=== PATIENT | female | born 1975 | race American Indian/Alaskan Native ===

== ENCOUNTER 2021-08-30 05:23 | Emergency (ER) | payer OTHER ==
[~2021-08-30] VITALS: Ht 157.5 cm; Wt 71.2 kg
[~2021-08-30 05:23] MED LIST: IBUPROFEN800 MG PO; NORCO 5-325 TA1 EACH PO; VICODIN HP 10-1 EAC1 PO
--- OUTSIDE RECORDS SUMMARY | 2021-08-30 05:26 | XMS ---
PreManage Notification: JAMIE RENEE Security Machine Assistant Events No recent Security Events currently on file [facility] There are no care providers on record at this time. Charles has no Care Guidelines for this patient. Luis Angel VISIT COUNT (12 MO.) 1 JOSELYN Aguilar TOTAL 1 NOTE: Visits indicate total known visits. ED/C VISIT TRACKING (12 MO.) 08/30/2021 05:23 JOSELYN Hou [place] TYPE: Emergency COMPLAINT: - DIZZINESS, WEAKNESS INPATIENT VISIT TRACKING (12 MO.) No inpatient visits to display in this time frame [id number]
[2021-08-30] MEDS ORDERED: CENTANY30 GM TOP (05:36)
[2021-08-30] MEDS ORDERED: ULTRAM50 MG PO (05:37)
[2021-08-30] MEDS ORDERED: BACTRIM DS TAB1 EACH PO (05:37)
[2021-08-30] MEDS ORDERED: KLONOPIN0.5 MG PO (05:38)
[2021-08-30] MEDS ORDERED: CYCLOBENZAPRINE10 MG PO (05:39)
[2021-08-30] MEDS ORDERED: ONDANSETRON ODT8 MG PO (06:46)
[2021-08-30] MEDS ORDERED: K-TAB ER20 MEQ PO (06:46)
== END 2021-08-30 07:30 | disposition home or self-care (01) ==
LOC: ED 05:23
DX: L03.811 Cellulitis of head [any part, except face] (principal); L03.032 Cellulitis of left toe; B95.62 Methicillin resistant Staphylococcus aureus infection as the cause of diseases classified elsewhere; E87.6 Hypokalemia; F17.200 Nicotine dependence, unspecified, uncomplicated; Z79.899 Other long term (current) drug therapy
CPT/HCPCS: 36415; 80048; 81001; 85025; 96374; 99283-25; C9803; J2405; J7030; U0003

== ENCOUNTER → 2021-11-20 | Emergency (ER) | payer OTHER ==
[~2021-11-20] VITALS: Ht 157.5 cm; Wt 66.7 kg
[~2021-11-20] MED LIST changes: +BACTRIM DS TAB1 EACH PO; +CENTANY30 GM TOP; +CLONIDINE HCL0.1 MG PO; +CYCLOBENZAPRINE10 MG PO; +K-TAB ER20 MEQ PO; +KLONOPIN0.5 MG PO; +MACROBID 100 M100 MG PO; +MIRALAX17 GM PO; +NEURONTIN300 MG PO; +ONDANSETRON ODT8 MG PO; +ULTRAM50 MG PO
--- OUTSIDE RECORDS SUMMARY | 2021-11-20 10:50 | XMS ---
PreManage Notification: JAMIE RENEE Security Die Repairer Forging Events No recent Security Events currently on file CRITERIA MET - [facility] [place] - 2 Visits in 30 Days - [facility] CARE PROVIDERS There are no care providers on record at this time. Charles has no Care Guidelines for this patient. Luis Angel VISIT COUNT (12 MO.) [address] [facility] [address] [facility] TOTAL 3 NOTE: Visits indicate total known visits. ED/C VISIT TRACKING (12 MO.) [facility] COMPLAINT: - WEAKNESS 11/17/2021 20:45 JOSELYN Montelongoony Patrick [facility] [place] TYPE: Emergency COMPLAINT: - NUMBNESS IN FEET/ HANDS, PAIN ALL OVER DIAGNOSES: - Constipation, unspecified - Other fci (current) drug therapy - Urinary tract infection, site not specified - Hypokalemia - Anesthesia of skin - Nicotine dependence, unspecified, uncomplicated 08/30/2021 05:23 JOSELYN Hou [place] TYPE: Emergency COMPLAINT: - DIZZINESS, WEAKNESS DIAGNOSES: - Cellulitis of head [any part, except face] - Hypokalemia - Other termite inspector (current) drug therapy - Cellulitis of left toe - Methicillin resistant Staphylococcus aureus infection as the cause of diseases classified elsewhere - Other malaise - Contact with and (suspected) exposure to COVID-19 - Nicotine dependence, unspecified, uncomplicated INPATIENT VISIT TRACKING (12 MO.) No inpatient visits to display in this time frame [id number]
== END | disposition short-term general hospital (02) ==
LOC: ED 10:49
PROC: 009U3ZX Drainage of Spinal Canal, Percutaneous Approach, Diagnostic (ICD-10-PCS; principal; 2021-11-20)
DX: G62.9 Polyneuropathy, unspecified (principal); N39.0 Urinary tract infection, site not specified; Q79.8 Other congenital malformations of musculoskeletal system; F17.200 Nicotine dependence, unspecified, uncomplicated; Z79.899 Other long term (current) drug therapy; Z20.822 Contact with and (suspected) exposure to COVID-19
CPT/HCPCS: 62270; 72131; 80053; 81001; 82553; 82945; 83735; 84157; 84443; 84703; 85025; 86140; 87088; 87502; 89051; 99285-25; A9270; C9803; J0696; J1170; J1790; J1885; J2405; J7030; J7040; U0003

== ENCOUNTER 2022-07-26 00:53 | Emergency (ER) | payer OTHER ==
[~2022-07-26] VITALS: Ht 157.5 cm; Wt 79.4 kg
--- OUTSIDE RECORDS SUMMARY | 2022-07-26 00:56 | XMS ---
PreManage Notification: JAMIE RENEE Security Return Clerk Events 1 event(s) in the past 18 months Most recent security events: Elopement at [facility] 06/13/2022 02:54 - Patient eloped before treatment completed. - Patient with suicidal and/or homicidal ideations eloped. - Patient eloped with IV in place. Details: Patient LWBS. CRITERIA MET - [facility] There are no care providers on record at this time. Charles has no Care Guidelines for this patient. E.D. VISIT COUNT (12 MO.) 5 [facility]. TOTAL 5 NOTE: Visits indicate total known visits. ED/C VISIT TRACKING (12 MO.) 07/26/2022 00:54 JOSELYN Hou [place] TYPE: Emergency COMPLAINT: - POSS OVERDOSE 06/13/2022 02:54 JOSELYN Hou [place] TYPE: Emergency COMPLAINT: - BRIGHT RED BLOOD IN STOOL, PT IS SHAKEY 11/20/2021 10:49 JOSELYN Hou [place] TYPE: Emergency COMPLAINT: - WEAKNESS DIAGNOSES: - Urinary tract infection, site not specified - Other congenital malformations of musculoskeletal system - Nicotine dependence, unspecified, uncomplicated - Contact with and (suspected) exposure to COVID-19 - Other terminologist (current) drug therapy - Polyneuropathy, unspecified - Type 2 diabetes mellitus with diabetic polyneuropathy - Weakness 11/17/2021 20:45 JOSELYN Hou [place] TYPE: Emergency COMPLAINT: - NUMBNESS IN FEET/ HANDS, PAIN ALL OVER DIAGNOSES: - Anesthesia of skin - Urinary tract infection, site not specified - Constipation, unspecified - Nicotine dependence, unspecified, uncomplicated - Hypokalemia - Other terminologist (current) drug therapy 08/30/2021 05:[address] [facility] [place] TYPE: Emergency COMPLAINT: - DIZZINESS, WEAKNESS DIAGNOSES: - Contact with and (suspected) exposure to COVID-19 - Methicillin resistant Staphylococcus aureus infection as the cause of diseases classified elsewhere - Other intermediate (current) drug therapy - Cellulitis of head [any part, except face] - Nicotine dependence, unspecified, uncomplicated - Other malaise - Cellulitis of left toe - Hypokalemia INPATIENT VISIT TRACKING (12 MO.) No inpatient visits to display in this time frame [id number]
--- NOTE | 2022-07-26 07:15 | EKG ---
[facility] [address] [facility] [place] [address] Signed Age and gender specific ECG analysis Supraventricular tachycardia with premature supraventricular complexes in a pattern of bigeminy and with frequent premature ventricular complexes Low voltage QRS ST elevation, consider inferolateral injury or acute infarct ACUTE [place] / STEMI Abnormal ECG No previous ECGs available Confirmed by DANIA BENAVIDES MD ([id number]) on 07/26/2022 7:15:24 AM Electronically Signed By: DANIA BENAVIDES MD 07/26/22 0715 PATIENT NAME: JAMIE RENEE Electrocardiogram DATE OF : 79 PHYSICIAN: DANIA BENAVIDES MD REPORT #: [id number] REPORT IS CONFIDENTIAL AND NOT TO BE RELEASED WITHOUT AUTHORIZATION
== END 2022-07-26 02:23 | disposition short-term general hospital (02) ==
LOC: ED 00:53
DX: A41.9 Sepsis, unspecified organism (principal); K72.90 Hepatic failure, unspecified without coma; I21.3 ST elevation (STEMI) myocardial infarction of unspecified site; E87.5 Hyperkalemia; F17.200 Nicotine dependence, unspecified, uncomplicated; Z79.899 Other long term (current) drug therapy; E16.2 Hypoglycemia, unspecified
CPT/HCPCS: 36415; 51702; 71045; 80053; 82140; 83605; 83735; 84484; 85025; 85060; 85610; 87502; 93005; 93010; 99285-25; A9270; J2543; U0003